=== PATIENT | female | born 1940 | race Caucasian/White ===

== ENCOUNTER 2025-02-12 16:55 | Inpatient (IN) | payer MEDICARE ==
[~2025-02-12] VITALS: Ht 172.7 cm; Wt 89.4 kg
[~2025-02-12 16:55] MED LIST: LISI-230 PO; SYN0.1T PO
--- NOTE | 2025-02-12 17:06 | ELECTROCARDIOGRAPH REPORT ---
[facility] Test Date: 2025-02-12 Test Time: 17:03:46 Pat Name: CLEVELAND MORAN Department: EMERGENCY ROOM Room: [place] [id number] Gender: F Roll Bucker: JAMI : 1940 Requested By: LYDIA VERGARA Order Number: [id number] Reading MD: Dr. SHAWANDA Garza Measurements Intervals [place] Rate: 108 P: 0 WV: 139 QRS: -20 QRSD: 113 T: 64 QT: 336 QTc: 451 Interpretive Statements Sinus tachycardia Incomplete left bundle branch block Low voltage, precordial leads Electronically Signed On 02-13-2025 16:53:[address] SHAWANDA Garza Please click the below link to view image of tracing.
[2025-02-12] MEDS: normal saline 1000ml 1,000 ML IV ONE (17:20)
--- NOTE | 2025-02-12 17:34 | Physician Documentation ---
History of Present Illness ~ Chief Complaint: Syncope Stated Complaint: WEAKNESS Time Seen by MD: 17:22 Primary Medical Doctor: JOHANNA KELLEY This is an 84-year-old female who called an ambulance today for progressive weakness over the last week. Ultimately, she was walking to the bathroom with her cane this evening when she had the sit on the floor due to worsening of her weakness. 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 She denies head strike. She admits that she has had black stools recently along with epigastric pain and shortness of breath that is worse with activity. Medication Reconciliation Allergies: Coded Allergies: [id number] Reductase Inhibitor (Verified Allergy, Intermediate, BONE AND LEG ACHES, 02/12/25) Scheduled Levothyroxine Sodium* (Synthroid*), 100 MCG PO DAILY, (Reported) Lisinopril/Hydrochlorothiazide 10-12.5 Mg* (Lisinopril-Hctz 10-12.5 Mg*), 1 EACH PO DAILY, (Reported) Past Medical History Past Medical History: *CANCER* Alcohol Use: None Drug Use: none Review of Systems ROS As stated above in the HPI, otherwise all systems are reviewed and negative. Physical Exam Vital Signs: Temperature: 97.3, Source: Oral, Heart Rate: 110, Respiratory Rate: 18, BP: 116/64, Pulse Oximetry: 100, Weight: 89.400 Oxygen Flow Rate: 0 Physical Exam General: Alert, no apparent distress. HEENT: PERRL, EOMI, no injection, dry mucus membranes. Neck: Full range of motion. Respiratory: Lungs clear, no respiratory distress. Chest: No accessory muscle use. Cardiovascular: Regular rate and rhythm, no murmurs. Gastrointestinal: Soft, nontender, nondistended. Bowels sounds present. Rectal: Good tone, no masses palpable in vault. Black stool noted, hemoccult pos. Extremities: Normal range of motion, no deformity. Neurologic: Oriented x4. Psychiatric: Normal mood and affect. Skin: Very pale, warm and dry. No edema, no ecchymosis. Progress Progress Note 1615: Patient presentation and plan of care discussed with ROLANDO Sims and plan of care developed with his input. 1750: Spoke with on-call hay chopper Dr. Alvarez who agrees to cons ult on patient. Hospitalist paged to evaluate patient for admission. The very real possibility of a deterioration of this patient's condition required the highest level of my preparedness for sudden, emergent intervention. I provided critical care services, which included medication orders, frequent reevaluations of the patient's condition and response to treatment, ordering and reviewing test results, and discussing the case with various consultants. Excludes time spent performing separately billable procedures. The critical care time associated with the care of the patient was. Results/Orders Results/Orders Orders - ISRRAEL BELTRAN WIRE MILL OPERATOR 2 Large Bore Ivs (02/12/25 ) Occult Bld Stool (02/12/25 17:22) Transfusion Informed Consent (02/12/25 17:49) Lrpc - No Active Bleeding (02/12/25 17:49) Page Hospitalist (02/12/25 17:50) Completed Orders - ISRRAEL BELTRAN WIRE MILL OPERATOR Pantoprazole 40mg Iv (Protonix 40mg Iv) (02/12/25 17:25) Pt Inr (02/12/25 17:23) Pantoprazole 40mg Iv (Protonix 40mg Iv) (02/12/25 17:25) Medications Received in ER Medications (Trade) Dose Ordered Sig/Nieves Route PRN Reason Start Time Stop Time Status Last Admin Dose Admin Sodium Chloride 1,000 ml @ 1,000 mls/hr ONCE ONCE IV 02/12/25 17:10 02/12/25 18:09 02/12/25 17:20 1,000 MLS/HR (Protonix 40mg IV) 80 mg ONCE ONCE IV 02/12/25 17:25 02/12/25 17:28 DC 02/12/25 17:52 80 MG Vital Signs 02/12/25 02/12/25 17:01 17:41 Temp 97.3 Pulse 110 Resp 18 18 B/P (MAP) 116/64 Pulse Ox 100 O2 Flow Rate 0 Laboratory Tests Test 02/12/25 17:15 02/12/25 17:22 White Blood Count 17.9 H Red Blood Count 2.08 L Hemoglobin 7.0 *L Hematocrit 20.9 *L Mean Corpuscular Volume 100.4 H Mean Corpuscular Hemoglobin 33.8 H Mean Corpuscular Hemoglobin Concent 33.6 Red Cell Distribution Width 14.2 Platelet Count 241 Mean Platelet Volume 9.0 Neutrophils (%) (Auto) 65.7 Lymphocytes (%) (Auto) 28.8 Monocytes (%) (Auto) 4.8 Eosinophils (%) (Auto) 0.3 Basophils (%) (Auto) 0.4 Neutrophils # (Auto) 11.8 H Lymphocytes # (Auto) 5.2 H Monocytes # (Auto) 0.9 Eosinophils # (Auto) 0.0 Basophils # (Auto) 0.1 CBC Comment Prothrombin Time 10.7 INR International Normalized Ratio 1.0 Coagulation Comments Sodium Level 142 Potassium Level 4.6 Chloride Level 111 H Carbon Dioxide Level 18.5 L Anion Gap 13 Blood Urea Nitrogen 80 H Creatinine 1.43 H Estimated GFR/1.73 m2 35 BUN/Creatinine Ratio 55.9 H Glucose Level 173 H Calcium Level 9.4 Total Bilirubin 0.3 Direct Bilirubin 0.1 Aspartate Amino Transf (AST/SGOT) 11 Alanine Aminotransferase (ALT/SGPT) 11 L Alkaline Phosphatase 45 L Troponin I High Sensitivity 15 Pro-B-Type Natriuretic Peptide 141 Total Protein 5.7 L Albumin 3.1 L Globulin 2.6 L Albumin/Globulin Ratio 1.2 Lipase 40 Chemistry Comments Salicylates Level 1.3 L Acetaminophen Level < 2.0 L EKG/XRAY/CT/US/VASC/MRI EKG : Additional Comment 1703 EKG interpreted to show ST rate of 108, no ectopy. QTC 451 ms. Chest X-Ray : Additional Comments [place] [address] DIAGNOSTIC RADIOLOGY Patient: CLEVELAND MORAN Medical Record: [id number] [place] : 1940, Age: 84 Sex: Female Location: ER Patient Status: REG ER Service Date/Time: 02/12/251657 Ordering Physician: LYDIA SIMS DO Exam: CHEST,SINGLE VIEW EXAM: DI CHEST,SINGLE VIEW HISTORY: Chest pain TECHNIQUE: 1 view of the chest COMPARISON: None FINDINGS/IMPRESSION: LUNGS: No pleural effusion, consolidation, or pneumothorax. Pleural-based thickening along of the right lower chest wall. MEDIASTINUM: Normal cardiac size BONES: No acute osseous abnormality. OTHER: None. Electronically Signed by:HERVE CHAVEZ MD Date & Time: 02/12/251733 Dictated by: HERVE CHAVEZ MD Dictation date and time: 02/12/251733 Primary Care Provider: NO PRIMARY CARE PROVIDER cc: LYDIA SIMS DO ~ Medical Decision Making Additional information obtaine: old records Findings last seen at this facility for rash in 2018. Diff Dx GI Bleed:Consideration: Include: Other Additional Comments One liter NS ordered IV as a bolus upon presentation. Rectal exam revealed hemocult pos black stool. Hgb returned 7.0, for which one unit PRBCs ordered. Pantoprazole 80 mg IVP x 1 given. Consulted GI, hospitalist paged to evaluate for admission. Clinical Scenario and Patient Presentation This 84-year-old female presents with hemodynamic compromise from acute upper gastrointestinal bleeding: heart rate >100 bpm (tachycardia), dyspnea on exertion, near syncope, hemoglobin of 7 g/dL (compared to baseline values typi lisette >12 g/dL in elderly women), and melena stool indicating upper GI blood loss. This constellation of findingstachycardia unresponsive to initial fluid resuscitation, symptomatic anemia with exertional dyspnea and presyncope, and objective evidence of severe anemiarepresents a high-risk presentation requiring urgent intervention with both blood transfusion and acid suppression therapy. Evidence Supporting Blood Transfusion Multiple guidelines recommend a restrictive transfusion strategy with a thresh old of hemoglobin <7 g/dL for most patients with upper gastrointestinal bleeding, based on high-quality randomized controlled trial evidence. The 2020 [employer] guidelines suggest transfusion when hemoglobin falls below 7 g/dL, with this threshold chosen because the landmark RCT by Flo et al. demonstrated benefit of restrictive transfusion using exactly this cutoff. A restrictive strategy (transfusing at Hb <7 g/dL) showed lower rates of , rebleeding, and adverse events compared to a liberal strategy (transfusing at Hb <9 g/dL). However, this patient meets multiple criteria for transfusion despite a hemoglobin of exactly 7 g/dL: Symptomatic presentation: The 2022 AABB International Guidelines explicitly state that clinicians should consider not only hemoglobin concentration but also symptoms, signs, and overall clinical context when deciding on transfusion. Relevant variables include dyspnea, decreased exercise tolerance, lightheadedness, and tachycardia unresponsive to fluid challengeall present in this patient. Hemodynamic instability: The persistent tachycardia (HR >100) despite crystalloi d resuscitation indicates ongoing hypovolemia or inadequate oxygen delivery. The ACG guidelines note that it is reasonable to transfuse hypotensive patients before hemoglobin levels reach 7 g/dL because hemoglobin will decrease further with fluid resuscitation even without additional bleeding. Ongoing bleeding: The presence of melena indicates active or recent upper GI bleeding, and the hemoglobin of 7 g/dL likely represents a darian that will decrease further as intravascular volume is restored with crystalloid administration. Potential cardiovascular disease: Given the patient's age (84 years) and symptoms of near syncope with exertion, preexisting cardiovascular disease is likely. Both the ACG and AABB guidelines recommend considering a transfusion threshold of 8 g/dL in patients with preexisting cardiovascular disease. The AABB guidelines specifically note that "clinicians may choose a threshold of 8 g/dL for patients with preexisting cardiovascular disease." The evidence base supporting restrictive transfusion comes from a meta-analysis of RCTs showing no significant difference in mortality between restrictive thresholds of 7 g/dL versus 8-9 g/dL in general populations (RR = 0.94 vs 1.05), but the landmark Rossi trial in upper GI bleeding specifically demonstrated improved outcomes with restrictive transfusion. A meta-analysis across multiple clinical contexts found that restrictive transfusion strategies reduced mortality and morbidity without increasing adverse outcomes. Evidence Supporting Intravenous Pantoprazole 80 mg High-dose intravenous proton pump inhibitor therapy (80 mg bolus followed by 8 mg/hour continuous infusion) is strongly supported by evidence in patients with peptic ulcer bleeding, particularly after endoscopic therapy for high-risk lesions. The mechanism of benefit is physiologic: PPIs increase gastric pH above 6, which stabilizes platelet aggregation and clot formation while preventing pepsin- mediated clot lysis. Maintaining intragastric pH >6 is critical for hemostasis in peptic ulcer bleeding. Evidence from clinical trials and guidelines: Itmann-analysis of six randomized trials showed that PPI administration soon after presentation was associated with a decrease in high-risk endoscopic findings (active bleeding, nonbleeding visible vessel, or adherent clot) and reduced need for endoscopic therapy. While this meta-analysis did not show significant red uction in further bleeding, surgery, or with pre-endoscopy PPI use, it demonstrated clear benefits in reducing high-risk stigmata. Post-endoscopy high-dose PPI therapy is definitively beneficial: When high-risk lesions are found and successfully treated endoscopically, patients should receive high-dose PPI with an initial IV loading dose of 80 mg, followed by continuous infusion of 8 mg/hour for 72 hours. This regimen has been shown to reduce rebleeding rates and improve outcomes. Pre-endoscopy use in high-risk patients: The case example from [facility] describes an 85-year-old woman with similar presentation (hemoglobin 7.6 g/dL, tachycardia, melena) who received 80 mg pantoprazole IV bolus followed by 8 mg/hour infusion while awaiting endoscopy. This represents standard practice in high-risk presentations. Guideline variation: While guidelines vary regarding pre-endoscopy PPI usesome recommend high-dose IV PPIs, others state PPIs "may be considered," and still others recommend against routine usethe consensus supports PPI administration in high-risk patients such as this elderly woman with hemodynamic compromise and severe anemia. For this specific patient, the combination of advanced age, severe anemia (Hb 7 g/dL), hemodynamic instability (persistent tachycardia), and symptomatic presentation (near syncope, dyspnea) places her in a high-risk category where both immediate transfusion and high-dose IV PPI therapy are strongly indicated based on current evidence and guidelines. Summary of Zelaya Evidence Blood Transfusion: Flo dong al. RCT: Restrictive strategy (Hb <7 g/dL) superior to liberal (Hb <9 g/dL) in upper GI bleedingreduced mortality and rebleeding ACG 2020 Guidelines: Transfuse at Hb <7 g/dL; reasonable to transfuse before reaching 7 g/dL in hypotensive patients; consider 8 g/dL threshold with cardiovascular disease AABB 202 Guidelines: Restrictive strategy (Hb <7 g/dL) for hemodynamically stable patients; consider symptoms, tachycardia, dyspnea, and clinical context Itmann-analyses: Restrictive transfusion reduces mortality without increasing adverse outcomes across multiple clinical contexts High-Dose IV PPI (Pantoprazole 80 mg bolus + 8 mg/hr infusion): Itmann-analysis of 6 RCTs: Reduces high-risk endoscopic findings and need for endoscopic therapy [facility] 2020 Guidelines: High-dose IV PPI recommended after endoscopic therapy for high-risk lesions; may be started pre-endoscopy Lancet 2023 Review: Standard regimen is 80 mg IV bolus + 8 mg/hr 72 hours for high-risk ulcer bleeding Mechanism: Maintains gastric pH >6, stabilizing clot formation and preventing pepsin-mediated lysis Clinical Application: This patient's presentation with symptomatic anemia (tachycardia, near syncope, dyspnea), hemoglobin of 7 g/dL, and ongoing bleeding (melena) meets criteria for both immediate red blood cell transfusion and high- dose IV PPI therapy while awaiting urgent endoscopy within 24 hours. 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 Aspirin is widely used for pain management but considerably increases the risk of gastrointestinal ulcerations and serious bleeding by >2-4 fold, especially in aging individuals. The aging gastric mucosa has impaired mucosal defense, increased susceptibility to injury by aspirin and other NSAIDs, and delayed healing. Individuals with iron-deficiency anemia may experience fatigue, dyspnea, lightheadedness, and exercise intoleranceall consistent with this patient's presentation. The black stool indicates upper GI bleeding with blood transit time sufficient for oxidation of hemoglobin to hematin. Bleeding peptic ulcer disease (gastric or duodenal ulcer): The epigastric pain with melena in an 84-year-old on chronic aspirin therapy is highly suggestive of peptic ulcer with active or recent bleeding. Dyspepsia, defined as pain or discomfort in the upper abdomen, was a presenting symptom in 81% of patients with ulcers. Approximately 29% of patients with peptic ulcers present with gastrointestinal bleeding. The risk is further increased in elderly patients using aspirin, particularly those ?70 years old. Bleeding remains the most c ommon complication of peptic ulcer disease, accounting for 73.2% of its hospital admissions. The progressive weakness and near-fall likely reflect hemodynamic compromise from ongoing blood loss. 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 The aging gastric mucosa demonstrates prominent structural and functional abnormalities with impaired mucosal defense, increased susceptibility to injury, and delayed healing. The epigastric pain and melena could represent diffuse erosive gastritis rather than discrete ulceration. This condition exists on a spectrum with peptic ulcer disease and may progress to alvina ulceration with continued NSAID exposure. 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 Rectal bleeding, iron-deficiency anemia, abdominal pain, and weight loss are red-flag signs and symptoms that should prompt evaluation for colorectal cancer regardless of age. The black stool could represent bleeding from an upper GI malignancy (gastric cancer) or right-sided colon cancer with slow transit causing melena rather than hematochezia. Cancer is associated with iron deficiency in 18-82% of cases. Anemia of chronic disease compounded by iron deficiency: Chronic osteoarthritis requiring heavy analgesic use represents a chronic inflammatory condition that can cause anemia of chronic disease through hepcidin-mediated iron sequestration. The most common mechanism of microcytic anemia in older adults is iron deficiency, which is often both absolute (decreased iron reserves) and functional (decreased circulating iron while reserves are high), particularly in frail older adults characterized by polymorbidity/polypharmacy. This patient likely has mixed anemia with both iron deficiency from GI blood loss and functional iron deficiency from chronic inflammation. Most Important Not to Miss Diagnoses: Acute upper gastrointestinal hemorrhage with hemodynamic instability: Rule out with immediate assessment of vital signs including orthostatic measurements, complete blood count, type and crossmatch, and urgent upper endoscopy within 24 hours. The melena, epigastric pain, and near-fall suggest significant blood loss with potential hemodynamic compromise. Patients with a Gap-Blatchford score >1 require admission and urgent endoscopy. Early endoscopy is recommended for all admitted patients, though earlier endoscopy does not result in improved outcomes and can be detrimental if the patient is not first adequately resuscitated. Urgent management includes assessment of hemodynamic status and initiating fluid resuscitation with crystalloids to restore end-organ perfusion and tissue oxygenation. Patients with hemoglobin <80 g/L should be transfused, aiming for 100 g/L, with a higher transfusion threshold in the presence of active cardiovascular disease. Acetaminophen hepatotoxicity with impending acute liver failure: Rule out with immediate serum acetaminophen level, comprehensive metabolic panel including liver function tests (AST, ALT, bilirubin), INR/PT, and assessment for encephalopathy. Heavy Excedrin use provides significant acetaminophen exposure (each tablet contains 250 mg acetaminophen), and chronic use for arthritis pain could result in cumulative toxicity, particularly in an elderly patient with potential malnutrition or decreased hepatic reserve. Administration of N- acetylcysteine (NAC) should begin as soon as toxicity is suspected, especially if time of ingestion is unknown, because there is proven benefit of late administration. The Domingo-Anil nomogram can guide therapy for single time- point ingestions. Clinical judgment should direct therapy, and it is reasonable to proceed with NAC treatment while awaiting diagnostic test results. Acute coronary syndrome precipitated by severe anemia: Rule out with immediate electrocardiography and serial high-sensitivity troponin measurements. The mild dyspnea worsening with activity in the setting of severe anemia and marked pallor could represent demand ischemia from decreased oxygen-carrying capacity. Anemia is common in patients with ACS and is associated with worse short- and long-term outcomes. The adverse effects of anemia may be due to decreased myocardial oxygen delivery and increased myocardial oxygen demand due to increased cardiac output. Even without classic anginal symptoms, elderly patients may present with atypical manifestations of ACS, and the near-fall could represent a syncopal or pre-syncopal episode from cardiac arrhythmia or ischemia. Perforated peptic ulcer: Rule out with careful abdominal examination assessing for peritoneal signs (rigidity, rebound tenderness, guarding) and upright chest radiography or CT abdomen/pelvis to detect free air. While the patient reports epigastric pain, the absence of fever does not exclude perforation, particularly in elderly patients who may have blunted inflammatory responses. Perforation is a life-threatening complication of peptic ulcer disease requiring emergency surgical consultation. The near-fall and progressive weakness could reflect early sepsis from contained perforation. Severe symptomatic anemia requiring urgent transfusion: Rule out with immediate complete blood count, reticulocyte count, peripheral blood smear, iron studies (ferritin, transferrin saturation, serum iron, TIBC), and assessment of hemodynamic stability. The marked pallor, progressive weakness, dyspnea with activity, and near-fall all suggest severe anemia with end-organ hypoperfusion. The [employer] ([place]) has published guidelines establishing hemoglobin thresholds for red blood cell transfusion in older adults: <7 g/dL in asymptomatic anemia, <8 g/dL if there is heart failure or coronary ins ufficiency, and <10 g/dL if there is poor clinical tolerance. This patient's symptoms (weakness, dyspnea, near-syncope) indicate poor clinical tolerance warranting transfusion if hemoglobin is <10 g/dL. In patients with ACS and acute or chronic anemia, blood transfusion to achieve a hemoglobin level ?10 g/dL may be reasonable to reduce cardiovascular events. Departure Time of Disposition: 18:02 Disposition: 09 ADMITTED INPATIENT Admitted to Inpatient Unit: yes, to hospitalist Impression: Primary Impression: Pre-syncope Additional Impressions: Anemia Qualified Codes: D50.0 - Iron deficiency anemia secondary to blood loss (chronic) Black stool Epigastric pain Condition: Stable Referrals: NO PRIMARY CARE PROVIDER (PCP) Signature Scribe Signature: x Attestation: The note accurately reflects work and decisions made by me.Isrrael Landon NP 02/12/25 17:33 ISRRAEL BELTRAN NP Feb 12, 2025 17:34
[2025-02-12 17:37] LABS: RED CELL DISTRIBUTION WIDTH 14.2 % (11.5-14.5)
--- NOTE | 2025-02-12 17:37 | RADIOLOGY REPORT ---
EXAM: DI CHEST,SINGLE VIEW HISTORY: Chest pain TECHNIQUE: 1 view of the chest COMPARISON: None FINDINGS/IMPRESSION: LUNGS: No pleural effusion, consolidation, or pneumothorax. Pleural-based thickening along of the right lower chest wall. MEDIASTINUM: Normal cardiac size BONES: No acute osseous abnormality. OTHER: None.
[2025-02-12 17:39] LABS: MEAN PLATELET VOLUME 9.0 FL (7.4-10.4)
[2025-02-12 17:57] LABS: INR 1.0 INR
[2025-02-12 17:58] LABS: CREATININE 1.43 MG/DL (0.40-0.90); PRO BRAIN NATRIURETIC PEPTIDE 141 PG/ML (0-450); TOTAL CARBON DIOXIDE 18.5 MMOL/L (24-32); eCRCL 29 ML/MIN; eGFR 35 ML/MIN
[2025-02-12] MEDS ORDERED: magnesium sulf-water 4G/100mL 100 ML IV PRN (18:35)
[2025-02-12] MEDS ORDERED: mag hydrox/Alum hydrox/simeth 30ml oral suspension PO PRN (18:35)
[2025-02-12] MEDS ORDERED: potassium Cl 20 mEq SR tablet PO PRN ×2 (18:35)
[2025-02-12] MEDS ORDERED: magnesium sulf-water 2g/50mL 50 ML IV PRN (18:35)
[2025-02-12] MEDS ORDERED: potassium Cl 40MEQ/1/2NS 520ml 520 ML IV PRN (18:35)
[2025-02-12] MEDS ORDERED: magnesium hydroxide 30ml (MOM) UD suspension PO PRN (18:35)
[2025-02-12] MEDS ORDERED: magnesium Cl slow-release 64mg tablet PO PRN (18:35)
[2025-02-12] MEDS ORDERED: ondansetron/PF 4mg/2ml inj IV PRN (18:35)
[2025-02-12] MEDS ORDERED: EZET10TA80 PO (18:40)
--- NOTE | 2025-02-12 18:52 | HISTORY AND PHYSICAL-Residence ---
History & Physical Providers to CC Resident Creating Document: LUISA CAMARA, RES ~ History of Present Illness Primary Medical Doctor: JOHANNA MEDEL Reason for Admit\Complaint: Melena History of Present Illness This is an 84-year-old female who presented to the ER with fatigue and dizziness. She has history of osteoarthritis in bilateral knee, she walks around using a cane. Over the past 2 weeks, she had a lot of pain for which she took NSAIDs. She started noticing black tarry stools since the past 1 week associated with it fatigue and dizziness. Today as she tried to ambulate to the bathroom, she experienced dizziness and a near syncopal episode. She also gives history of abdominal pain, epigastric region, cramping type, intermittent, 7/10, progressive pain since the past 1 week. No history of hematochezia, nausea vomiting, hematemesis, fever with chills, abdominal distention, yellowing of eyes. No previous history of GI bleed. Allergies: Coded Allergies: Sdzoeap-TKY-[id number] Reductase Inhibitor (Verified Allergy, Intermediate, BONE AND LEG ACHES, 02/12/25) Home Medications Home Medications Active Reported Ezetimibe 10 Mg Tablet 1 Tab PO DAILY Lisinopril-Hctz 10-12.5 Mg* (HCTZ/Lisinopril) 10 Mg/12.5 Mg Tablet 1 Each PO DAILY Synthroid* (Levothyroxine Sodium) 100 Mcg Tablet 100 Mcg PO DAILY Past Medical History Past Medical History Hypertension Hyperlipidemia Hypothyroidism Past Surgical History Surgical History Comment Multiple orthopedic surgeries of the knee Endometrial cancer status post hysterectomy Past Social History Smoking: Non-Smoker Alcohol Use: None Drug Use: None Lives with: Spouse Lives In: Home Occupation: retired Exam Vitals: Vital Signs Date Time Temp Pulse Resp B/P (MAP) Pulse Ox O2 Delivery O2 Flow Rate FiO2 02/12/25 18:30 99 Room Air* 0 21 02/12/25 18:30 98 13 108/68 (81) 02/12/25 17:01 97.3 General: General: Well alert, well oriented, not confused, not agitated, not in acute distress, well cooperated during the physical. HEENT: Conjunctive are pink, sclerae clear, no icterus, pupil is equal in both sides, reactive to light, no ear discharge, no pharyngeal erythema or an edema. Neck: Supple, no JVD, no lymphadenopathy and thyromegaly. Chest: Equal air entry on both lungs, no added sounds, no wheeze. Cardiovascular: S1-S2 regular sinus rhythm and, regular rate, no gallops, no rubs, no murmurs Abdomen: No visible peristalsis, Bowel sounds present on auscultation, soft, nontender, no guarding, no rigidity Extremities: No obvious deformities, no pitting edema bilaterally, capillary refill intact, peripheral pulsations are intact on both sides Central Nervous System: No focal neurological deficits, no motor or sensory weakness in all 4 extremities, could move all 4 extremities, 2+ deep tendon reflexes, negative Babinski. Musculoskeletal: No joint swelling, deformities, inflammations, and no scoliosis and back tenderness Skin: Warm and dry. Diagnostic Data Last Recorded Lab Results: 02/12/25171402/12/251714 Diagnostic Data: Laboratory Tests Test 02/12/25 17:15 Prothrombin Time 10.7 SECONDS (9.0-12.0) INR International Normalized Ratio 1.0 INR Coagulation Comments Counseling Services Smoking & Tobacco Cessation: N/A Advance Care Planning Advanced Care plannin - 30 Minutes Additional Plan Assessment: This is an healthy 84-year-old female has been treated for melena secondary to NSAIDs use. Posted for endoscopy tomorrow morning. Plan: Upper GI bleed secondary to NSAID use Vitals: Tachycardia, normal blood pressure CBC: Hemoglobin 7, hematocrit 20.9, MCV 100.4 Received Protonix 80 mg IV push in the ER Started the patient on Protonix drip, NPO from midnight Endoscopy tomorrow morning to look for active bleeding, ulcers Avoid IV fluids further hemodilution. 1 unit of PRBC transfusion ongoing in the ER, H&H q.6h. To transfuse PRBC in case hemoglobin drops below 7. Monitor vitals. Macrocytic anemia in the background of upper GI bleed. High MCV. Ordered vitamin B12 Comorbidities: Hypothyroidism-continue home medication levothyroxine 100 mcg Dyslipidemia-continue home medication Zetia 10 mg Hypertension-held her blood pressure medication lisinopril/hydrochlorothiazide in view of soft blood pressure. Code status: Full code DVT prophylaxis: Heparin 5000 subcutaneous q.8h Analgesia/sedation: Morphine/[place] Line/tube: PIV GI prophylaxis: Protonix drip Nutrition: Heart healthy, NPO from midnight PT: Ordered. Prognosis: Guarded Disposition: Admit to PCU, H and H q.6h, endoscopy tomorrow morning. Luisa Camara MD PGY1, Internal Medicine [facility] Date of Service: Feb 12, 2025 Billing Provider: BIJU CASEY MD Common Visit Codes: [id number] INP/OBS CARE (HIGH) Secondary Visit Codes: [id number] CARE PLAN 30 MINUTES LUISA CAMARA, RES Feb 12, 2025 18:52 BIJU CASEY MD Feb 14, 2025 08:30
[2025-02-12 19:37] LABS: EOSINOPHILS % (MANUAL) 1.0 % (0-6); LYMPHOCYTES % (MANUAL) 29.0 % (21-51); MONOCYTES % (MANUAL) 2.0 % (2-12); NEUTROPHILS % (MANUAL) 68.0 % (42-75)
[2025-02-12 19:39] LABS: PLATELET ESTIMATE NORMAL
[2025-02-12 19:41] LABS: NUCLEATED RED BLOOD CELLS 1 /100WBC (0-0)
[2025-02-12 19:44] VITALS: BP 114/59; PULSE 92; RESP 20; TEMP 98
[2025-02-12 20:00] VITALS: BP_SYST 108; BP_SYST 124; BP_SYST 134; BP_SYST 95; BP_DIAS 51; BP_DIAS 56; BP_DIAS 60; PULSE 85; PULSE 89; PULSE 95; RESP 13; TEMP 97.7
[2025-02-12] MEDS: docusate sod 100mg capsule PO SCH (20:00)
[2025-02-12] MEDS: heparin, porcine 5000 units/ml vial SQ SCH (20:00)
[2025-02-12] MEDS: K and/or MAG REPLACEMENT MC SCH (20:00)
[2025-02-12 21:00] VITALS: BP 134/61; PULSE 95; RESP 16; TEMP 97.8
[2025-02-12] MEDS ORDERED: pantoprazole 40MG/NS 100ML BAG 100 ML IV SCH (21:00)
[2025-02-12 21:40] VITALS: BP 126/56; PULSE 74; RESP 18; TEMP 98.1; O2SAT 99
[2025-02-12 22:00] VITALS: BP_SYST 126; BP_SYST 135; BP_DIAS 56; BP_DIAS 62; PULSE 74; PULSE 95; RESP 16; RESP 18; TEMP 97.8; TEMP 98.1; O2SAT 99
[2025-02-12] MEDS: pantoprazole 40MG/NS 100ML BAG 100 ML IV SCH (22:22)
[2025-02-12] MEDS: HYDROcodone/acetaminophen 5mg/325mg tablet PO PRN (23:08)
[2025-02-13] VITALS (11 sets, daily range): BP systolic 95–134; BP diastolic 40–76; PULSE 55–89; RESP 13–17; TEMP 97–98.2; O2SAT 96–99
[2025-02-13 02:35] LABS: MEAN PLATELET VOLUME 9.0 FL (7.4-10.4)
[2025-02-13 02:36] LABS: RED CELL DISTRIBUTION WIDTH 16.1 % (11.5-14.5)
[2025-02-13 02:47] LABS: CREATININE 1.32 MG/DL (0.40-0.90); TOTAL CARBON DIOXIDE 20.3 MMOL/L (24-32); eCRCL 31 ML/MIN; eGFR 38 ML/MIN
[2025-02-13 06:33] LABS: OCCULT BLOOD STOOL POSITIVE (Neg)
--- NOTE | 2025-02-13 07:03 | CONSULTATION REPORT - RESIDENT ---
Consult Providers to CC Resident Creating Document: BIANCAZAK BENJAMIN History of Present Illness Reason for Admit\Complaint: Melena History of Present Illness An 84-year-old female with a history of hypertension, hyperlipidemia, hypothyroidism, osteoarthritis of both knees and prior endometrial cancer s/p hysterectomy, presented to the ED with fatigue, dizziness, melena and epigastric pain. For the past two weeks, she has had worsening bilateral knee pain and has been taking NSAIDs frequently for symptomatic relief. Approximately one week ago, she began noticing black tarry stools, accompanied by increasing fatigue and dizziness. Yesterday while attempting to walk to the bathroom, she developed severe dizziness with a near-syncopal episode. She reports epigastric abdominal pain, cramping in nature, intermittent, rated 7/10, progressively worsening over the past week. She denies hematochezia, hematemesis, nausea, vomiting, abdominal distention, jaundice or prior GI bleeds. No fevers or chills. In the ED initial labs showed hemoglobin 7, MCV 100.4. She received 80 mg IV Protonix and was started on a Protonix drip. One unit PRBC transfusion is currently running. Allergies: Coded Allergies: Oxndroi-UJV-FiU Reductase Inhibitor (Verified Allergy, Intermediate, BONE AND LEG ACHES, 02/12/25) Home Medications Home Medications Active Reported Ezetimibe 10 Mg Tablet 1 Tab PO DAILY Lisinopril-Hctz 10-12.5 Mg* (HCTZ/Lisinopril) 10 Mg/12.5 Mg Tablet 1 Each PO DAILY Synthroid* (Levothyroxine Sodium) 100 Mcg Tablet 100 Mcg PO DAILY Past Medical History Past Medical History Hypertension Hyperlipidemia Hypothyroidism Osteoarthritis (bilateral knees) Endometrial cancer s/p hysterectomy Past Surgical History Surgical History Comment Multiple bilateral knee orthopedic surgeries Hysterectomy for endometrial cancer Past Social History Social History Comment Non-smoker No alcohol use No drug use Lives at home with spouse Retired ROS ROS Reviewed in full. All negative except for pertinent positive HPI. Exam Vitals: Vital Signs Date Time Temp Pulse Resp B/P (MAP) Pulse Ox O2 Delivery O2 Flow Rate FiO2 02/13/25 03:00 16 96 Room Air 02/12/25 22:00 98.1 74 126/56 02/12/25 20:03 0 02/12/25 18:30 21 General: General: Alert, oriented, cooperative, no acute distress HEENT: Pale conjunctiva; clear sclerae; PERRLA; no pharyngeal erythema Neck: Supple; no JVD; no lymphadenopathy Respiratory: Equal breath sounds bilaterally; no wheezing or crackles Cardiovascular: Regular rate and rhythm; no murmurs, rubs, or gallops Abdomen: Soft, non-distended; bowel sounds present; non-tender; no guarding or rigidity Extremities: No edema; pulses intact; capillary refill normal Neurological: No focal deficits; normal strength and sensation; reflexes 2+; moves all extremities Musculoskeletal: No deformities or swelling; no spine tenderness Skin: Warm, dry Diagnostic Data Last Recorded Lab Results: 02/13/2522402/13/25224 Diagnostic Data: Laboratory Tests Test 02/12/25 17:15 Prothrombin Time 10.7 SECONDS (9.0-12.0) INR International Normalized Ratio 1.0 INR Coagulation Comments Additional Plan 1. Upper GI Bleed - likely secondary to NSAID use Melena x1 week, dizziness, near-syncope Hgb 7, tachycardic Received 80 mg IV Protonix in ED; now on PPI drip One unit PRBC transfusion Plan: Continue Protonix drip NPO after midnight for EGD Avoid excessive IVF to prevent hemodilution H&H q6h Transfuse PRBC if Hgb <7 or if hemodynamically instability seen Monitor vitals Avoid NSAIDs entirely 2. Macrocytic Anemia (acute blood loss & possible underlying deficiency) MCV 100.4 Anemia from UGI bleed with possible B12 deficiency Plan: Vitamin B12 level pending Continue transfusion protocol Replace B12 if low 3. Hypothyroidism 4. Hyperlipidemia 5. Hypertension Management per hospitalist team DVT Prophylaxis: Janet Ambriz MD Internal Medicine Resident, PGY-2 Date of Service: Feb 13, 2025 Billing Provider: SHANKAR LITTLEJOHN MD, GAURAV, RES Feb 13, 2025 07:02
[2025-02-13 08:23] LABS: MEAN PLATELET VOLUME 9.1 FL (7.4-10.4); RED CELL DISTRIBUTION WIDTH 15.6 % (11.5-14.5)
[2025-02-13] MEDS: levoTHYROXINE 100mcg tablet PO SCH (08:38)
[2025-02-13] MEDS ORDERED: propofol inj 20 ML IV ONE (12:09)
[2025-02-13] MEDS ORDERED: morphine 4 MG/ML inj SYRINge IV PRN (12:57)
--- NOTE | 2025-02-13 14:24 | PROGRESS NOTE- Residence ---
Progress Note - Resident Providers to CC Resident Creating Document: TRENT WOODARD, RES ~ Central Line/PICC still needed: No Krishnan-Non Protocol Krishnan Indications Met/Not Met: F/C Indications Not Met Antibiotic Timeout Antibiotic Ordered?: No Subjective Patient is comfortable at bedside, reports that the epigastric abdominal pain has resolved. But she does have ongoing hypogastric abdominal pain as well as left knee pain requiring pain medication and difficulty in staying asleep last night secondary to the pain. However, patient denies any burning micturition or increased frequency of urination. Objective Vital Signs Date Time Temp Pulse Resp B/P (MAP) Pulse Ox O2 Delivery O2 Flow Rate FiO2 02/13/25 13:00 79 15 120/59 (79) 98 Nasal Cannula 3.0 02/13/25 12:30 96.8 02/12/25 18:30 21 Result Diagram: 02/13/25 0801 02/13/25 0225 General: Awake and Alert, no acute distress. HEENT: Conjunctiva pink, Sclera clear, Mucus Membranes moist. Resp: Unlabored. Lungs clear to auscultation bilaterally. Heart: Regular Rate and rhythm, normal S1 and S2 without murmur, rub or gallop. Abdomen: Mildly distended, nontender. Bowel sounds present. No epigastric tenderness Extremities: No cyanosis,clubbing or edema. Skin: Warm and Dry. No rashes Coagulation Studies Laboratory Tests Test 02/12/25 17:15 Prothrombin Time 10.7 SECONDS (9.0-12.0) INR International Normalized Ratio 1.0 INR Coagulation Comments Assessment Assessment This is a 84-year-old female patient with a past medical history of endometrial cancer status post hysterectomy, hypertension, hyperlipidemia, hypothyroidism and osteoarthritis of the both knees who presented to the hospital with complaints of melena and epigastric pain with associated dizziness that began one week prior to the hospitalization and led to a one time presyncopal episode prompting to come into the hospital. An EGD was performed which revealed presence of nonbleeding duodenal ulcers. The episode of melena likely secondary to excessive NSAID intake through Excedrin for the knee pain leading to bleeding of the duodenal ulcers. Plan Plan Upper GI bleed: Likely NSAID induced gastritis Elevated BUN/creatinine ratio secondary to above; improving EGD reveals gastritis and nonbleeding duodenal ulcers; biopsied Received 1 unit PRBC transfusion overnight. H&H is stable since then. No further episodes of melena Resume regular diet; stop Protonix drip. Switching to p.o. Protonix daily Refrain from NSAID use Watch for repeat melanotic episode. Follow H&H q.6 hours Neutrophilic leukocytosis: Negative for SIRS; no febrile episode Mildly elevated procalcitonin from 0.05 to 0.11 Lactic acid normal Follow urinalysis, blood cultures No identifiable source of infection at this time Acute on chronic kidney injury: Improving Unknown baseline renal function Follow nonvascular renal ultrasound Awaiting urinalysis and reflex culture Continue IV fluids at a rate of 75 cc/hour; encourage oral hydration Follow up BMP Macrocytic and hyperchromic anemia: Status post 1 unit PRBC transfused; anemia now normocytic but hyperchromic Follow vitamin B12 levels Hypothyroidism: Continue home medication of levothyroxine of 100 mcg daily Hypertension: Continue home medication of lisinopril hydrochlorothiazide Maintain blood pressure between 120-130 mmHg SBP Lines: PIV Code status: DNR Gi prophylaxis: Protonix DVT prophylaxis: SCDs Diet: Regular Trent Woodard PGY3, Internal medicine resident Patient was seen, examined and discussed with the attending MD, Dr. Casey Date of Service: Feb 13, 2025 Billing Provider: BIJU CASEY MD Common Visit Codes: [id number] INP/OBS CARE(HIGH) TRENT WOODARD, RES Feb 13, 2025 14:24 BIJU CASEY MD Feb 14, 2025 08:31
[2025-02-13 15:35] LABS: MEAN PLATELET VOLUME 9.1 FL (7.4-10.4); RED CELL DISTRIBUTION WIDTH 15.9 % (11.5-14.5)
[2025-02-13] MEDS: normal saline 1000ml 1,000 ML IV SCH (16:10)
--- NOTE | 2025-02-13 16:12 | RADIOLOGY REPORT ---
CLINICAL HISTORY: Acute kidney injury TECHNIQUE: Complete ultrasound exam of the kidneys and bladder was performed. COMPARISON: None FINDINGS: The right kidney has normal echogenicity and measures 11.4 cm. There is no focal parenchymal abnormality or evidence for stone. There is mild hydronephrosis. The left kidney has normal echogenicity and measures 12.9 cm. There is no focal parenchymal abnormality or evidence for stone. There is mild hydronephrosis. The bladder is distended with the urinary bladder volume of 693 mL. IMPRESSION: Mild bilateral hydronephrosis. Distended urinary bladder with volume of 693 mL.
[2025-02-13 17:12] LABS: LEUKOCYTE ESTERASE ,URINE NEGATIVE (Neg); NITRITES, URINE NEGATIVE (Neg); OCCULT BLOOD,URINE NEGATIVE (Neg)
[2025-02-13 17:13] LABS: UA COLLECTION TYPE CLN CATCH MIDSTREAM
[2025-02-13 20:00] LABS: MEAN PLATELET VOLUME 8.9 FL (7.4-10.4); RED CELL DISTRIBUTION WIDTH 16.2 % (11.5-14.5)
[2025-02-14] VITALS (11 sets, daily range): BP systolic 106–128; BP diastolic 46–76; PULSE 69–111; RESP 16–18; TEMP 97.5–97.9; O2SAT 98–100
[2025-02-14 04:39] LABS: MEAN PLATELET VOLUME 9.0 FL (7.4-10.4); RED CELL DISTRIBUTION WIDTH 16.0 % (11.5-14.5)
[2025-02-14 04:49] LABS: CREATININE 1.17 MG/DL (0.40-0.90); TOTAL CARBON DIOXIDE 22.6 MMOL/L (24-32); eCRCL 35 ML/MIN; eGFR 44 ML/MIN
[2025-02-14] MEDS: pantoprazole 40mg Tablet.DR PO SCH ×2 (08:41→19:11)
[2025-02-14 09:19] LABS: MEAN PLATELET VOLUME 8.5 FL (7.4-10.4); RED CELL DISTRIBUTION WIDTH 16.2 % (11.5-14.5)
--- NOTE | 2025-02-14 18:22 | PROGRESS NOTE- Residence ---
Progress Note - Resident Providers to CC Resident Creating Document: LUISA CARVAJAL, ZAK ~ Central Line/PICC still needed: N\A Krishnan-Non Protocol Krishnan Indications Met/Not Met: F/C Indications Not Met Antibiotic Timeout Antibiotic Ordered?: No Subjective Patient is comfortable at bedside. No abdominal pain at the moment. No acute symptoms overnight. Tolerating diet well. Objective Vital Signs Date Time Temp Pulse Resp B/P (MAP) Pulse Ox O2 Delivery O2 Flow Rate FiO2 02/14/25 16:35 97.9 87 18 128/53 02/14/25 11:20 100 Room Air 02/13/25 13:00 3.0 02/12/25 18:30 21 Result Diagram: 02/14/25 0911 02/14/25 0416 General: Awake and Alert, no acute distress. HEENT: Conjunctiva pink, Sclera clear, Mucus Membranes moist. Resp: Unlabored. Lungs clear to auscultation bilaterally. Heart: Regular Rate and rhythm, normal S1 and S2 without murmur, rub or gallop. Abdomen: Mildly distended, nontender. Bowel sounds present. No epigastric tenderness Extremities: No cyanosis,clubbing or edema. Skin: Warm and Dry. No rashes Coagulation Studies Laboratory Tests Test 02/12/25 17:15 Prothrombin Time 10.7 SECONDS (9.0-12.0) INR International Normalized Ratio 1.0 INR Coagulation Comments Assessment Assessment This is an 84-year-old female who is currently admitted for melena, normocytic normochromic anemia secondary to NSAIDs use. She underwent endoscopy yesterday, which showed gastritis and nonbleeding duodenal ulcers. Currently on Protonix IV 40 mg b.i.d.. H&H at 7 and 21. Peripheral smear shows hairy cell leukocytes. Plan Plan Upper GI bleed secondary to NSAID use Vitals: Stable CBC: Hemoglobin 7, hematocrit 20.9, MCV 100.4 Droped from 8 yesterday, most likely due to hemodilution. Received 1 point PRBC today, stopped fluids. Continue Protonix 40 mg IV b.i.d. Endoscopy showed gastritis with nonbleeding duodenal ulcer, Med grade 3. Heart healthy diet as tolerated H&H q.12h, monitor vitals. Neutrophilic leukocytosis: Negative for SIRS; no febrile episode, inflammatory markers not elevated. Peripheral smear shows he results. This might be a coexisting reason for her anemia. Recommended outpatient Heme-Onc evaluation. Acute on chronic kidney injury Creatinine improved to 1.17 with EGFR of 44 Renal ultrasound mild bilateral hydro nephroureteral probably due to urine retention. Patient given 1 dose of Flomax, after which she was able to empty her bladder. Hypothyroidism: Continue home medication of levothyroxine of 100 mcg daily Hypertension: Continue home medication of lisinopril hydrochlorothiazide Maintain blood pressure between 120-130 mmHg SBP Lines: PIV Code status: DNR Gi prophylaxis: Protonix DVT prophylaxis: SCDs Diet: Regular Luisa Carvajal PGY1, Internal medicine resident Patient was seen, examined and discussed with the attending MD, Dr. Casey Date of Service: Feb 14, 2025 Billing Provider: BIJU CASEY MD Common Visit Codes: [id number] INP/OBS CARE(HIGH) LUISA CARVAJAL, RES Feb 14, 2025 18:22 BIJU CASEY MD Feb 15, 2025 08:36
[2025-02-15 02:55] LABS: MEAN PLATELET VOLUME 9.2 FL (7.4-10.4); RED CELL DISTRIBUTION WIDTH 15.5 % (11.5-14.5)
[2025-02-15 06:00] VITALS: BP 138/67; PULSE 78; RESP 16; TEMP 97.8; O2SAT 98
[2025-02-15 06:28] LABS: MEAN PLATELET VOLUME 9.0 FL (7.4-10.4); RED CELL DISTRIBUTION WIDTH 15.8 % (11.5-14.5)
[2025-02-15 07:26] LABS: CREATININE 1.01 MG/DL (0.40-0.90); TOTAL CARBON DIOXIDE 21.5 MMOL/L (24-32); eCRCL 40 ML/MIN; eGFR 52 ML/MIN
[2025-02-15 08:00] VITALS: BP_SYST 104; BP_SYST 106; BP_SYST 96; BP_DIAS 45; BP_DIAS 51; BP_DIAS 66; PULSE 70; PULSE 87; PULSE 96; RESP 16; O2SAT 98
[2025-02-15] MEDS ORDERED: PANT-47 PO (14:28)
--- NOTE | 2025-02-15 19:00 | DISCHARGE SUMMARY-Residence ---
Discharge Summary Providers to Resident Creating Document: LUISA CARVAJAL, RES ~ Discharge Summary Admission Diagnosis: [facility] Hospital Course DATE OF ADMISSION: 02/12/2025 DATE OF DISCHARGE: 02/15/2025 Discharge Diagnosis\Comment: Upper GI bleed secondary to Gastritis and nonbleeding duodenal ulcer, Med grade 3 classification. Normochromic normocytic anemia Leukocytosis with hairy cells in peripheral smear Hypothyroidism Dyslipidemia Hypertension Operations\Procedures: Endoscopy by Dr. Velasquez, relocation director Consultants: Dr. Velasquez, relocation director Complications: None Condition on DC: Stable New Medications: Pantoprazole Sodium (PROTONIX tablet) 40 Mg Tablet.dr 40 MG PO DAILY for 30 Days, #30 TAB.SR Continued Medications: Ezetimibe (Ezetimibe) 10 Mg Tablet 1 TAB PO DAILY Levothyroxine Sodium* (Synthroid*) 100 Mcg Tablet 100 MCG PO DAILY Lisinopril/Hydrochlorothiazide 10-12.5 Mg* (Lisinopril-Hctz 10-12.5 Mg*) 10 Mg/12.5 Mg Tablet 1 EACH PO DAILY Discharge Summary: History of present illness: This is an 84-year-old female who presented to the ER with fatigue and dizziness. Over the past 2 weeks, she had a lot of pain in her knees for which she took NSAIDs. She started noticing black tarry stools since the past 1 week associated with it fatigue and dizziness. She also gives history of abdominal pain, epigastric region, cramping type, intermittent, 7/10, progressive pain since the past 1 week. No history of hematochezia, nausea vomiting, hematemesis, fever with chills, abdominal distention, yellowing of eyes. No previous history of GI bleed. Hospital course: Patient was started on Protonix drip . The patient's H&H on h ospitalization was found to be severely low requiring blood transfusion. She underwent 2 units of PRBC transfusion during the course of hospitalization. Her H&H is currently being stable at 8.8 and 24. She underwent endoscopy with Dr. Velasquez, relocation director which showed gastritis with nonbleeding duodenal ulcer, Med grade 3. We continued her home medication for her comorbidities. The patient underwent renal ultrasound for her KAROLINE and urinary retention. Renal ultrasound showed mild bilateral hydronephroureter most probably due to urinary retention. Which resolved after 1 dose of Flomax. She was found to have leukocytosis without any inflammatory or infective process. Peripheral smear showed Hairy cells. She did not have any clinical si gns of B-cell symptoms or splenomegaly. PT cleared her as home independent with a walker. The patient is hemodynamically stable and symptomatically better and hence being discharged with the following instructions. Vital Signs Date Time Temp Pulse Resp B/P (MAP) Pulse Ox O2 Delivery O2 Flow Rate FiO2 02/15/25 08:00 87 104/45 (64) 70 96/51 (66) 96 106/66 (79) 02/15/25 08:00 16 98 Room Air 02/15/25 06:00 97.8 02/13/25 13:00 3.0 02/12/25 18:30 21 Laboratory Tests Test 02/13/25 19:46 02/14/25 04:16 02/14/25 09:11 02/14/25 22:49 White Blood Count 16.3 X10'3 14.2 X10'3 14.8 X10'3 14.6 X10'3 Red Blood Count 2.34 X10'6 2.13 X10'6 2.17 X10'6 2.43 X10'6 Hemoglobin 7.6 g/dl 7.1 g/dl 7.2 g/dl 8.0 g/dl Hematocrit 22.8 % 20.9 % 21.6 % 23.5 % Mean Corpuscular Volume 97.4 FL 97.8 FL 99.4 FL 96.6 FL Mean Corpuscular Hemoglobin 32.6 PG 33.3 PG 33.2 PG 32.8 PG Mean Corpuscular Hemoglobin Concent 33.5 g/dL 34.0 g/dL 33.4 g/dL 34.0 g/dL Red Cell Distribution Width 16.2 % 16.0 % 16.2 % 15.5 % Platelet Count 229 X10'3 217 X10'3 216 X10'3 202 X10'3 Mean Platelet Volume 8.9 FL 9.0 FL 8.5 FL 9.2 FL Hematology Comments Neutrophils (%) (Auto) 63.6 % Lymphocytes (%) (Auto) 27.4 % Monocytes (%) (Auto) 6.3 % Eosinophils (%) (Auto) 2.0 % Basophils (%) (Auto) 0.7 % Neutrophils # (Auto) 9.0 X10'3 Lymphocytes # (Auto) 3.9 X10'3 Monocytes # (Auto) 0.9 X10'3 Eosinophils # (Auto) 0.3 X10'3 Basophils # (Auto) 0.1 X10'3 CBC Comment Sodium Level 144 MMOL/L Potassium Level 3.9 MMOL/L Chloride Level 115 MMOL/L Carbon Dioxide Level 22.6 MMOL/L Anion Gap 6 Blood Urea Nitrogen 41 MG/DL Creatinine 1.17 MG/DL Estimated GFR/1.73 m2 44 ML/MIN BUN/Creatinine Ratio 35.0 Glucose Level 116 MG/DL Calcium Level 8.7 MG/DL Magnesium Level 1.9 MG/DL Iron Level 14 UG/DL Transferrin 237 mg/dL Total Bilirubin 0.5 MG/DL Aspartate Amino Transf (AST/SGOT) 61 U/L Alanine Aminotransferase (ALT/SGPT) 19 U/L Alkaline Phosphatase 39 IU/L Total Protein 5.4 G/DL Albumin 2.8 G/DL Globulin 2.6 G/DL Albumin/Globulin Ratio 1.1 Chemistry Comments Test 02/15/25 05:53 White Blood Count 14.1 X10'3 Red Blood Count 2.62 X10'6 Hemoglobin 8.8 g/dl Hematocrit 25.2 % Mean Corpuscular Volume 95.9 FL Mean Corpuscular Hemoglobin 33.4 PG Mean Corpuscular Hemoglobin Concent 34.9 g/dL Red Cell Distribution Width 15.8 % Platelet Count 222 X10'3 Mean Platelet Volume 9.0 FL Neutrophils (%) (Auto) 58.9 % Lymphocytes (%) (Auto) 28.9 % Monocytes (%) (Auto) 6.2 % Eosinophils (%) (Auto) 5.0 % Basophils (%) (Auto) 1.0 % Neutrophils # (Auto) 8.3 X10'3 Lymphocytes # (Auto) 4.1 X10'3 Monocytes # (Auto) 0.9 X10'3 Eosinophils # (Auto) 0.7 X10'3 Basophils # (Auto) 0.1 X10'3 CBC Comment Sodium Level 142 MMOL/L Potassium Level 3.7 MMOL/L Chloride Level 112 MMOL/L Carbon Dioxide Level 21.5 MMOL/L Anion Gap 9 Blood Urea Nitrogen 30 MG/DL Creatinine 1.01 MG/DL Estimated GFR/1.73 m2 52 ML/MIN BUN/Creatinine Ratio 29.7 Glucose Level 104 MG/DL Calcium Level 8.7 MG/DL Magnesium Level 1.7 MG/DL Total Bilirubin 1.1 MG/DL Aspartate Amino Transf (AST/SGOT) 60 U/L Alanine Aminotransferase (ALT/SGPT) 33 U/L Alkaline Phosphatase 52 IU/L Total Protein 5.6 G/DL Albumin 2.9 G/DL Globulin 2.7 G/DL Albumin/Globulin Ratio 1.1 Thyroid Stimulating Hormone (TSH) 2.25 ulU/ml Chemistry Comments Imaging: Chest x-ray: LUNGS: No pleural effusion, consolidation, or pneumothorax. Pleural-based thickening along of the right lower chest wall. MEDIASTINUM: Normal cardiac size BONES: No acute osseous abnormality. OTHER: None. Renal ultrasound: Mild bilateral hydronephrosis. Distended urinary bladder with volume of 693 mL. Physical exam on discharge: General: Well alert, well oriented, not confused, not agitated, not in acute distress, well cooperated during the physical. HEENT: Conjunctive are pink, sclerae clear, no icterus, pupil is equal in both sides, reactive to light, no ear discharge, no pharyngeal erythema or an edema. Neck: Supple, no JVD, no lymphadenopathy and thyromegaly. Chest: Equal air entry on both lungs, no added sounds, no wheeze. Cardiovascular: S1-S2 regular sinus rhythm and, regular rate, no gallops, no rubs, no murmurs Abdomen: No visible peristalsis, Bowel sounds present on auscultation, soft, nontender, no guarding, no rigidity Extremities: No obvious deformities, no pitting edema bilaterally, capillary refill intact, peripheral pulsations are intact on both sides Central Nervous System: No focal neurological deficits, no motor or sensory weakness in all 4 extremities, could move all 4 extremities, 2+ deep tendon reflexes, negative Babinski. Musculoskeletal: No joint swelling, deformities, inflammations, and no scoliosis and back tenderness Skin: Warm and dry. Discharge instructions: Take Protonix 40 mg p.o. b.i.d. regularly. Take all your other medications regularly. Follow up with your primary care provider in 1 week. Follow up with the relocation director, Dr. Malhotra in 2 weeks Follow up with your oncologist in we will Oncology in 1 week in view of hairy cell lymphocytes on peripheral smear. Visit ER immediately in case of any acute emergencies including abdominal pain, hematemesis, melena, abdominal distention, chest pain, palpitation, syncope. *Problems/Diagnosis: (1) Anemia Status: Acute (2) Epigastric pain Status: Acute (3) Black stool Status: Acute (4) Pre-syncope Status: Acute Total Time Spent on D/C: > 30 Minutes Counseling Services Smoking & Tobacco Cessation: N/A Date of Service: Feb 15, 2025 Billing Provider: BIJU CASEY MD Common Visit Codes: 99124-PBU/OBS DISCH DAY >30min Problem Qualifiers (1) Anemia: Anemia type: iron deficiency Iron deficiency anemia type: chronic blood loss Qualified Codes: D50.0 - Iron deficiency anemia secondary to blood loss (chronic) LUISA CARVAJAL, ZAK Feb 15, 2025 19:00 BIJU CASEY MD Feb 16, 2025 06:56
[2025-02-16] MEDS ORDERED: TRAM50TA2 PO (06:53)
== END 2025-02-15 15:20 | disposition home or self-care (01) | DRG 377 ==
LOC: ER 16:55 → ED HOLD 18:39 → SUR 3N 20:55
PROVIDERS: ADMIT Internal Medicine; ATTEND Internal Medicine
PROC: 30233N1 Transfusion of Nonautologous Red Blood Cells into Peripheral Vein, Percutaneous Approach (ICD-10-PCS; principal; 2025-02-12)
PROC: 0DB68ZX Excision of Stomach, Via Natural or Artificial Opening Endoscopic, Diagnostic (ICD-10-PCS; 2025-02-13)
PROC: 0DB78ZX Excision of Stomach, Pylorus, Via Natural or Artificial Opening Endoscopic, Diagnostic (ICD-10-PCS; 2025-02-13)
DX: K29.71 Gastritis, unspecified, with bleeding (principal); R65.11 Systemic inflammatory response syndrome (SIRS) of non-infectious origin with acute organ dysfunction; Z66 Do not resuscitate; N17.9 Acute kidney failure, unspecified; K26.4 Chronic or unspecified duodenal ulcer with hemorrhage; E03.9 Hypothyroidism, unspecified; I10 Essential (primary) hypertension; D62 Acute posthemorrhagic anemia; T39.395A Adverse effect of other nonsteroidal anti-inflammatory drugs [NSAID], initial encounter; E78.5 Hyperlipidemia, unspecified; R33.9 Retention of urine, unspecified; M17.0 Bilateral primary osteoarthritis of knee; Y92.89 Other specified places as the place of occurrence of the external cause; Z88.8 Allergy status to other drugs, medicaments and biological substances; K26.9 Duodenal ulcer, unspecified as acute or chronic, without hemorrhage or perforation; E86.0 Dehydration
CPT/HCPCS: 36415; 36430; 43239; 71045; 76770; 80048; 80053; 80076; 80329; 81003; 82272; 82607; 83540; 83605; 83690; 83735; 83880; 84145; 84443; 84466; 84484; 85007; 85025; 85027; 85610; 86885; 86900; 86901; 86920; 87040; 87081; 88305; 88342; 93005; 97161; 97530; 99285; A4615; A4620; A6212; A6258; G0378; J1644; J2470; J2704; J7030; J7040; J7120; P9016